=== PATIENT | female | born 1955 | race Caucasian/White ===

== ENCOUNTER 2019-02-19 12:15 | Emergency (ER) | payer MEDICARE ==
[2019-02-19] MEDS ORDERED: SODIUM CHLORIDE 0.9% 1000ML 1,000 ML IVS ONE (12:27)
[2019-02-19] MEDS ORDERED: IPRATROPIUM/ALBUTEROL 3 ML VIAL NEB ONE ×2 (12:27→14:57)
--- NOTE | 2019-02-19 13:15 | RAD ---
EXAM DESCRIPTION: Chest,2 Views CLINICAL HISTORY: drowsy, low bp, copd COMPARISON: None available FINDINGS: Frontal and lateral views of the chest. Cardiac silhouette shows normal heart size. Pulmonary vascularity is within normal limits. Lung volumes are mildly hyperinflated, compatible with COPD. Minimal linear opacities in the left lung base most likely represent subsegmental atelectasis. Costophrenic angles are sharp. No pneumothorax. Mild degenerative disc disease of the thoracic spine. IMPRESSION: 1. Minimal linear opacities in the left lung base most likely represent subsegmental atelectasis. Underlying infiltrate cannot be entirely excluded, and felt less likely. 2. Lung volumes are mildly hyperinflated, compatible with COPD. Electronically signed by: Dayday Forde MD 02/19/2019 1:13 PM CDT
[2019-02-19] MEDS ORDERED: predniSONE 20 MG TAB PO ONE (13:23)
[2019-02-19 15:15] VITALS: TEMP 98.1
--- NOTE | 2019-02-19 15:29 | ED.PDOC ---
History of Present Illness - General Chief Complaint: Respiratory Problem Stated Complaint: altered mental; wheezing Time Seen by Provider: 02/19/19 12:27 Source: patient Exam Limitations: no limitations - History of Present Illness Initial Comments: the patient is a 63-year-old female presenting to the emergency room secondary to significant drowsiness and hypotension. The patient is obviously having a mild COPD exacerbation as well. She is oxygenating well. She is oriented 4 but she is slurring her speech. She does have a hard time staying awake. no syncope or near-syncope. No falls. No chest pains or palpitations. She has recently had several medications increased. The patient does take numerous sedating and potentially blood pressure dropping medications. She has no focal symptoms of any infection otherwise. She does still smoke of course. Timing/Duration: unsure Severity: moderate Improving Factors: nothing Worsening Factors: nothing Associated Symptoms: cough, malaise, weakness Allergies/Adverse Reactions: Allergies Influenza Vaccines Allergy (Verified 02/19/19 12:51) Iodine Allergy (Verified 02/19/19 12:51) Meperidine Allergy (Verified 02/19/19 12:51) Home Medications: Ambulatory Orders Aripiprazole [Abilify] 30 mg PO DAILY 02/19/19 Benzonatate Perles [Tessalon Perles] 100 mg PO TID 02/19/19 Buspirone HCl [Buspirone Hydrochloride] 15 mg PO QID 02/19/19 Bnumdgfowf-Rzzeloj-Tsbqcnhe [Butalbital/ASA/Caffeine 50-325-40 mg] 1 cap PO Q6H PRN 02/19/19 Cetirizine HCl 10 mg PO DAILY 02/19/19 Cetirizine-Pseudoephedrine [Zyrtec-D Allergy/Congesti] 1 tab PO BID 02/19/19 Citalopram Hydrobromide [Citalopram] 40 mg PO DAILY 02/19/19 Donepezil Hydrochloride [Donepezil HCl] 10 mg PO DAILY 02/19/19 Ergocalciferol [Vitamin D] 50,000 unit PO WKLY 02/19/19 Furosemide [Lasix] 20 mg PO QAM PRN 02/19/19 HYDROcodone 10MG/APAP 325MG [[place] 10/325] 1 tab PO Q6H PRN 02/19/19 Hydroxyzine HCl 25 mg PO Q6H PRN 02/19/19 Lactulose [Constulose] 10 gm PO Q8H 02/19/19 Linaclotide [Linzess] 290 mcg PO DAILY 02/19/19 Meloxicam [Mobic] 15 mg PO DAILY 02/19/19 Methylprednisolone [Medrol Dose Dev] 4 mg PO DAILY 02/19/19 Morphine Sulfate [Morphine Sulfate ER] 30 mg PO Q8H PRN 02/19/19 Naloxone HCl [Narcan] 4 mg NA PRN PRN 02/19/19 Ondansetron HCl [Zofran] 4 mg PO Q8H PRN 02/19/19 Oxybutynin Chloride [Oxybutynin Chloride ER] 15 mg PO BID 02/19/19 Potassium Chloride [Potassium Chloride ER] 10 meq PO DAILY 02/19/19 Pregabalin [Lyrica] 100 mg PO BID 02/19/19 Primidone [Mysoline] 50 mg PO DAILY 02/19/19 Ranitidine HCl 150 mg PO DAILY 02/19/19 Topiramate 100 mg PO BID 02/19/19 Zolpidem Tartrate [Ambien] 5 mg PO QPM PRN 02/19/19 tiZANidine [Zanaflex] 4 mg PO Q6H 02/19/19 Review of Systems - Review of Systems Constitutional: States: malaise EENTM: States: no symptoms reported Respiratory: States: cough, short of breath - mild Gastrointestinal/Abdominal: States: no symptoms reported Musculoskeletal: States: no symptoms reported Skin: States: no symptoms reported Neurological: States: see HPI Endocrine: States: no symptoms reported All other Systems: No Change from Baseline Past Medical History (General) - Patient Medical History Hx Seizures: No Hx Dementia: Yes Hx of COPD: Yes Hx Cardiac Disorders: No Hx Congestive Heart Failure: No Hx Hypertension: No Hx Thyroid Disease: No Hx Diabetes: No Hx Gastroesophageal Reflux: Yes Hx Renal Disease: No Surgical History: Hysterectomy, other Family Medical History - Family History Mother Family History: Unknown Physical Exam - Physical Exam General Appearance: Lethargic Eye Exam: bilateral other - extraocular movements are intact. Pupils are small but still minimally reactive. Ears, Nose, Throat: hearing grossly normal, normal pharynx Neck: full range of motion, supple Respiratory: lungs clear, normal breath sounds, no respiratory distress, no accessory muscle use Cardiovascular/Chest: normal peripheral pulses, no edema, other - mild bradycardia Peripheral Pulses: radial,right: 2+, radial,left: 2+, dorsalis pedis,right: 2+, dorsalis pedis,left: 2+ Gastrointestinal/Abdominal: non tender, soft Rectal Exam: deferred Back Exam: no CVA tenderness, no vertebral tenderness Extremity: normal range of motion, non-tender, normal inspection, no pedal edema, normal capillary refill 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, oriented x 3 Skin Exam: normal color Comments: Vital Signs - 24 hr 02/19/19 02/19/19 02/19/19 12:15 12:26 12:52 Temperature 98.0 F Pulse Rate Pulse Rate [ 59 L 57 L left brachial] Respiratory 20 20 20 Rate Blood Pressure 88/50 91/49 [left brachial] O2 Sat by Pulse 96 94 L Oximetry 02/19/19 02/19/19 02/19/19 12:54 13:00 14:00 Temperature Pulse Rate 54 L Pulse Rate [ 62 61 left brachial] Respiratory 18 16 16 Rate Blood Pressure 96/51 112/70 [left brachial] O2 Sat by Pulse 100 88 L 90 L Oximetry 02/19/19 02/19/19 15:00 15:12 Temperature 98.1 F Pulse Rate 72 Pulse Rate [ 71 left brachial] Respiratory 16 16 Rate Blood Pressure 113/59 [left brachial] O2 Sat by Pulse 99 95 Oximetry Progress - Progress Progress: 02/19/19 15:31 the patient is a 63-year-old female presenting to the emergency room secondary to significant drowsiness along with hypotension and a COPD exacerbation. The patient is not hypoxic. She has responded fairly well to the breathing treatments. The patient will be written for [employer] and for another nebulizer machine and attachments as she apparently does not have one that functions at home. She needs to stop smoking as she will likely not resolve a COPD exacerbation without it. She is going to be placed on prednisone 20 mg a day for 5 days as well for the same reason. She'll be placed on azithromycin for 5 days as well for the same reason. The patient was drowsy most likely due to medications but also due to hypotension. I believe the hypotension is simply due to the medications. Adding up it looks like she is on 9 medications that can decrease her blood pressure potentially and 14 medications that can cause either drowsiness or confusion. The patient received a liter of IV fluids here for the mild hypotension. It did not really do much. Waiting for some of her medications to wear off actually did improve the blood pressure which correspondingly improve her level of awareness. For the next week, I want the patient to make the following medication changes: Decrease the morphine to a twice daily dosing from 3 times daily dosing, do not take the hydrocodone, hold primidone, change to Zyrtec or cetirizine to a nightly dosing instead of a morning dosing, and decrease the Lyrica to a nightly dosing only instead of twice a day. I do want her to follow up with her primary care doctor before the weekend to see how these changes are working for her. It would be good if she could obtain a blood pressure cuff to see if she is having more of these episodes related to a lower blood pressure. ER warnings were given for any significant worsening. No evidence of other significant infection or other source of hypotension has been found. Mental status has improved. - Results/Orders Results/Orders: chest x-ray shows chronic changes of COPD. Laboratory Tests 02/19/19 02/19/19 02/19/19 13:00 13:00 13:00 WBC 6.4 RBC 3.77 L Hgb 11.8 L Hct 36.3 MCV 96.3 MCH 31.2 H MCHC 32.4 L RDW 14.3 Plt Count 146 MPV 8.9 Absolute Neuts (auto) 2.30 Absolute Lymphs (auto) 3.40 Absolute Monos (auto) 0.50 Absolute Eos (auto) 0.20 Absolute Basos (auto) 0.00 Neutrophils % 36.6 L Lymphocytes % 52.9 H Monocytes % 7.3 Eosinophils % 2.8 Basophils % 0.4 Sodium 136 Potassium 4.0 Chloride 105 Carbon Dioxide 23 Anion Gap 12.0 BUN 22 H Creatinine 1.06 BUN/Creatinine Ratio 20.8 H Random Glucose 86 Serum Osmolality 274.6 L Lactic Acid 0.8 Calcium 8.9 Magnesium 1.9 Total Bilirubin 0.4 AST 12 ALT < 8 L Alkaline Phosphatase 89 Creatine Kinase 68 CK-MB (CK-2) 1.3 CK-MB (CK-2) % 1.91 Troponin I < 0.02 B-Natriuretic Peptide 9.2 Serum Total Protein 6.6 Albumin 3.8 Globulin 2.8 Albumin/Globulin Ratio 1.4 TSH Urine Color Urine Appearance Urine pH Ur Specific [place] Urine Protein Urine Glucose (UA) Urine Ketones Urine Blood Urine Nitrite Urine Bilirubin Urine Urobilinogen Ur Leukocyte Esterase Urine RBC Urine WBC Ur Epithelial Cells Urine Bacteria 02/19/19 02/19/19 13:00 14:21 WBC RBC Hgb Hct MCV MCH MCHC RDW Plt Count MPV Absolute Neuts (auto) Absolute Lymphs (auto) Absolute Monos (auto) Absolute Eos (auto) Absolute Basos (auto) Neutrophils % Lymphocytes % Monocytes % Eosinophils % Basophils % Sodium Potassium Chloride Carbon Dioxide Anion Gap BUN Creatinine BUN/Creatinine Ratio Random Glucose Serum Osmolality Lactic Acid Calcium Magnesium Total Bilirubin AST ALT Alkaline Phosphatase Creatine Kinase CK-MB (CK-2) CK-MB (CK-2) % Troponin I B-Natriuretic Peptide Serum Total Protein Albumin Globulin Albumin/Globulin Ratio TSH 0.95 Urine Color Yellow Urine Appearance Clear Urine pH 5.5 Ur Specific [place] 1.015 Urine Protein Negative Urine Glucose (UA) Negative Urine Ketones Negative Urine Blood Trace-intact H Urine Nitrite Negative Urine Bilirubin Negative Urine Urobilinogen 0.2 Ur Leukocyte Esterase Negative Urine RBC 0 Urine WBC 0 Ur Epithelial Cells 0-1 Urine Bacteria 0 Departure - Departure Clinical Impression: Acute exacerbation of COPD with asthma Hypotension Qualifiers: Hypotension type: hypotension due to drug Qualified Code(s): I95.2 - Hypotension due to drugs Adverse effects of medication Qualifiers: Encounter type: initial encounter Qualified Code(s): T50.905A - Adverse effect of unspecified drugs, medicaments and biological substances, initial encounter Disposition: Discharge to Home or Self Care Condition: Fair Departure Forms: ED Discharge - Pt. Copy, Patient Portal Self Enrollment Instructions: Exacerbation of COPD (DC), Low Blood Pressure (DC) Diet: regular diet Activity: increase activity as tolerated, walking as tolerated Referrals: DAWN TURNER [Primary Care Provider] - 1-2 Days Home Medications: Ambulatory Orders Aripiprazole [Abilify] 30 mg PO DAILY 02/19/19 Benzonatate Perles [Tessalon Perles] 100 mg PO TID 02/19/19 Buspirone HCl [Buspirone Hydrochloride] 15 mg PO QID 02/19/19 Knrmrqgzlx-Msjiwal-Cnghvlwy [Butalbital/ASA/Caffeine 50-325-40 mg] 1 cap PO Q6H PRN 02/19/19 Cetirizine HCl 10 mg PO DAILY 02/19/19 Cetirizine-Pseudoephedrine [Zyrtec-D Allergy/Congesti] 1 tab PO BID 02/19/19 Citalopram Hydrobromide [Citalopram] 40 mg PO DAILY 02/19/19 Donepezil Hydrochloride [Donepezil HCl] 10 mg PO DAILY 02/19/19 Ergocalciferol [Vitamin D] 50,000 unit PO WKLY 02/19/19 Furosemide [Lasix] 20 mg PO QAM PRN 02/19/19 HYDROcodone 10MG/APAP 325MG [[place] 10/325] 1 tab PO Q6H PRN 02/19/19 Hydroxyzine HCl 25 mg PO Q6H PRN 02/19/19 Lactulose [Constulose] 10 gm PO Q8H 02/19/19 Linaclotide [Linzess] 290 mcg PO DAILY 02/19/19 Meloxicam [Mobic] 15 mg PO DAILY 02/19/19 Methylprednisolone [Medrol Dose Dev] 4 mg PO DAILY 02/19/19 Morphine Sulfate [Morphine Sulfate ER] 30 mg PO Q8H PRN 02/19/19 Naloxone HCl [Narcan] 4 mg NA PRN PRN 02/19/19 Ondansetron HCl [Zofran] 4 mg PO Q8H PRN 02/19/19 Oxybutynin Chloride [Oxybutynin Chloride ER] 15 mg PO BID 02/19/19 Potassium Chloride [Potassium Chloride ER] 10 meq PO DAILY 02/19/19 Pregabalin [Lyrica] 100 mg PO BID 02/19/19 Primidone [Mysoline] 50 mg PO DAILY 02/19/19 Ranitidine HCl 150 mg PO DAILY 02/19/19 Topiramate 100 mg PO BID 02/19/19 Zolpidem Tartrate [Ambien] 5 mg PO QPM PRN 02/19/19 tiZANidine [Zanaflex] 4 mg PO Q6H 02/19/19 Additional Instructions: the patient is a 63-year-old female presenting to the emergency room secondary to significant drowsiness along with hypotension and a COPD exacerbation. The patient is not hypoxic. She has responded fairly well to the breathing treatments. The patient will be written for [employer] and for another nebulizer machine and attachments as she apparently does not have one that functions at home. She needs to stop smoking as she will likely not resolve a COPD exacerbation without it. She is going to be placed on prednisone 20 mg a day for 5 days as well for the same reason. She'll be placed on azithromycin for 5 days as well for the same reason. The patient was drowsy most likely due to medications but also due to hypotension. I believe the hypotension is simply due to the medications. Adding up it looks like she is on 9 medications that can decrease her blood pressure potentially and 14 medications that can cause either drowsiness or confusion. The patient received a liter of IV fluids here for the mild hypotension. It did not really do much. Waiting for some of her medications to wear off actually did improve the blood pressure which correspondingly improve her level of awareness. For the next week, I want the patient to make the following medication changes: Decrease the morphine to a twice daily dosing from 3 times daily dosing, do not take the hydrocodone, hold primidone, change to Zyrtec or cetirizine to a nightly dosing instead of a morning dosing, and decrease the Lyrica to a nightly dosing only instead of twice a day. I do want her to follow up with her primary care doctor before the weekend to see how these changes are working for her. It would be good if she could obtain a blood pressure cuff to see if she is having more of these episodes related to a lower blood pressure. ER warnings were given for any significant worsening. No evidence of other significant infection or other source of hypotension has been found. Mental status has improved.
[2019-02-19 16:10] VITALS: BP 124/61; O2SAT 97
== END 2019-02-19 16:08 | disposition home or self-care (01) ==
LOC: ER 12:25
DX: I95.2 Hypotension due to drugs (principal); T50.905A Adverse effect of unspecified drugs, medicaments and biological substances, initial encounter; J44.1 Chronic obstructive pulmonary disease with (acute) exacerbation; F17.200 Nicotine dependence, unspecified, uncomplicated; F03.90 Unspecified dementia, unspecified severity, without behavioral disturbance, psychotic disturbance, mood disturbance, and anxiety; K21.9 Gastro-esophageal reflux disease without esophagitis; Z79.899 Other long term (current) drug therapy; Z88.7 Allergy status to serum and vaccine; Z91.041 Radiographic dye allergy status; Z88.8 Allergy status to other drugs, medicaments and biological substances
CPT/HCPCS: 36415; 71046; 80053; 81001; 82550; 82553; 83605; 83735; 83880; 84443; 84484; 85025; 87502; 94640; J7030; J7512; J7620